=== PATIENT | male | born 2000 | race Caucasian/White ===

== ENCOUNTER 2020-04-30 21:23 | Emergency (ER) | payer OTHER ==
[2020-04-30] MEDS ORDERED: Hydrocortisone/Neomycin/Polymyxin B Ophth Susp 7.5 ML Bottle EYEBOTH ONE (21:24)
--- NOTE | 2020-04-30 22:16 | EDM.PDOC ---
ED HPI GENERAL MEDICAL PROBLEM - General Chief Complaint: ENT Problem Stated Complaint: SOMETHING IN EYE Time Seen by Provider: 04/30/20 21:35 Source of Information: Reports: Patient, RN Notes Reviewed - History of Present Illness INITIAL COMMENTS - FREE TEXT/NARRATIVE: Patient presented to the ED because of pain on the right eye. He felt like there is a FB in his right eye, he rubbed it and now it hurts when he open and close his eyes. He rate the pain 7/10 and worse with blinking. right eye Pain Score (Numeric/FACES): 7 - Related Data Allergies Allergy/AdvReac Type Severity Reaction Status Date / Time No Known Allergies Allergy Verified 04/30/20 21:33 Home Meds: Home Meds NK [No Known Home Meds] 04/30/20 [History] Past Medical History - Past Surgical History HEENT Surgical History: Reports: Other (See Below) Other HEENT Surgeries/Procedures: tubes in ears as child Social & Family History - Family History Family Medical History: Noncontributory - Tobacco Use Smoking Status *Q: Heavy Tobacco Smoker Years of Tobacco use: 2 Packs/Tins Daily: 1 - Caffeine Use Caffeine Use: Reports: Energy Drinks - Recreational Drug Use Recreational Drug Use: No ED ROS ENT - Review of Systems Review Of Systems: See Below Constitutional: Reports: No Symptoms HEENT: Reports: No Symptoms Respiratory: Reports: No Symptoms Cardiovascular: Reports: No Symptoms Endocrine: Reports: No Symptoms GI/Abdominal: Reports: No Symptoms : Reports: No Symptoms Musculoskeletal: Reports: No Symptoms Skin: Reports: No Symptoms Neurological: Reports: No Symptoms ED EXAM, ENT - Physical Exam Exam: See Below Exam Limited By: No Limitations General Appearance: Alert, No Apparent Distress Eye Exam: Right Eye: Conjunctival Injection, Bilateral Eye: PERRL Ears: Normal External Exam, Normal Canal, Hearing Grossly Normal, Normal TMs Nose: Normal Inspection, Normal Mucousa, No Blood Mouth/Throat: Normal Inspection, Normal Gums, Normal Lips, Normal Oropharynx Head: Atraumatic, Normocephalic Neck: Normal Inspection, Supple, Non-Tender, Full Range of Motion Respiratory/Chest: No Respiratory Distress, Lungs Clear, Normal Breath Sounds Cardiovascular: Normal Peripheral Pulses, Regular Rate, Rhythm, No Edema, No Gallop GI/Abdominal: Normal Bowel Sounds, Soft, Non-Tender, No Organomegaly (Male) Exam: No Hernia, Normal Inspection, Normal Prostate, Circumcised Back: Normal Inspection, Full Range of Motion Extremities: Normal Inspection, Normal Range of Motion, Non-Tender Neurological: Alert, Oriented, CN II-XII Intact, Normal Cognition, Normal Gait Psychiatric: Normal Affect, Normal Mood Skin: Warm, Dry, Intact, Normal Color, No Rash Course - Vital Signs Text/Narrative:: Tetracaine eye drop was instilled on the right eye then stained with fluorescein. There was no FB identified, however, there is corneal abrasion at the 6 and 12 o'clock position. Last Recorded V/S: Last Vital Signs Temp 37.0 C 04/30/20 21:23 Pulse 62 04/30/20 21:23 Resp 14 04/30/20 21:23 BP 127/67 04/30/20 21:23 Pulse Ox 100 04/30/20 21:23 - Orders/Labs/Meds Meds: Medications Discontinued Medications Generic Name Dose Route Start Last Admin Trade Name Aydenq PRN Reason Stop Dose Admin Neomycin/Polymyxin/Hydrocortisone 7.5 ml 04/30/20 21:24 Cortisporin Ophth Susp EYEBOTH 04/30/20 21:25 .STK-MED ONE Departure - Departure Time of Disposition: 22:25 Disposition: Home, Self-Care 01 Condition: Good Clinical Impression: Corneal abrasion - Discharge Information Instructions: Corneal Abrasion, [id number] Referrals: Jessica Rios NP [Primary Care Provider] - Forms: ED Department Discharge Additional Instructions: Please read discharge instructions on corneal abrasion Apply ice when your eye is itchy or its painful Do not rub your eyes because it cause swelling which is causing the pain Take ibuprofen 800 mg with tylenol 1000 mg every 8 hours as needed for pain Apply 1-2 drops of the Tetracaine eye drops every 2 hours for pain that you can't tolerate. Do not use this eye drops for more than 3 days Apply Enoch/Poly/HC eye drops 2 drops to the right eye 4 times daily for 5-7 days Follow up with your eye doctor after a week if there is no improvement Sepsis Event Note (ED) - Evaluation Sepsis Screening Result: No Definite Risk
== END 2020-04-30 22:25 | disposition home or self-care (01) ==
LOC: FB.ED 21:23
DX: S05.01XA Injury of conjunctiva and corneal abrasion without foreign body, right eye, initial encounter (principal); F17.210 Nicotine dependence, cigarettes, uncomplicated; X58.XXXA Exposure to other specified factors, initial encounter
CPT/HCPCS: 99283; A9270-GY

== ENCOUNTER 2021-12-19 16:41 | Emergency (ER) | payer SELFPAY ==
[2021-12-19] MEDS ORDERED: Sodium Chloride 0.9% 10 ML Syringe FLUSH PRN (17:05)
[2021-12-19] MEDS ORDERED: Ketorolac 30 MG/ML SDV IVPUSH STA (17:13)
[2021-12-19] MEDS ORDERED: Sodium Chloride 0.9% 1,000 ML IV SCH (17:15)
[2021-12-19] MEDS ORDERED: Iopamidol 755 Mg/ML 100 ML Bottle IV ONE (17:16)
[2021-12-19] MEDS ORDERED: predniSONE 20 MG Tab PO STA (19:25)
[2021-12-19] MEDS ORDERED: Sulfamethoxazole/Trimethoprim 800-160 MG Tab PO STA (19:25)
== END 2021-12-19 19:40 | disposition home or self-care (01) ==
LOC: FB.ED 16:41
DX: K65.4 Sclerosing mesenteritis (principal); I88.0 Nonspecific mesenteric lymphadenitis
CPT/HCPCS: 36415; 74177; 80053; 81001; 82150; 83690; 85025; 96374; 99282; 99284-25; A9270-GY; J1885; J7030; J7512; Q9967